=== PATIENT | female | born 2005 | race Caucasian/White ===

== ENCOUNTER 2023-03-09 10:55 | Emergency (ER) | payer OTHER ==
[~2023-03-09] VITALS: Ht 152.4 cm; Wt 39.5 kg
[~2023-03-09 10:55] MED LIST: CEFADROXIL500 MG/5 M PO
== END 2023-03-09 19:10 | disposition home or self-care (01) ==
LOC: EMR PED 10:55
DX: R50.9 Fever, unspecified (principal); M79.18 Myalgia, other site; B34.9 Viral infection, unspecified; Z88.8 Allergy status to other drugs, medicaments and biological substances; Z91.013 Allergy to seafood; N39.0 Urinary tract infection, site not specified
CPT/HCPCS: 36415; 96365; 96366; 99284; J0696; J3490; J7030; J7070